=== PATIENT | female | born 1980 | race Caucasian/White ===

== ENCOUNTER 2020-12-29 14:10 | Outpatient (CLI) | payer BC, SELFPAY ==
--- NOTE | 2020-12-29 14:17 | MM_ITS ---
WS: [id number] BILATERAL SCREENING MAMMOGRAM WITH VANNESA DISPLACEMENT VIEWS. CAD PERFORMED. HISTORY: SCREENING COMPARISON: None available. Bilateral craniocaudal and mediolateral like views are performed. Vannesa displacement views in CC and MLO projection also performed. Breasts composition: The breasts are heterogeneously dense, which may obscure small masses. No suspi cious masses or calcifications or distortion. Retropectoral implants are intact. MM/[id number] IMPRESSION: BI-RADS: 2-Benign FOLLOW-UP: 1 Year Follow-up
== END 2020-12-29 14:11 | disposition home or self-care (01) ==
LOC: RADSHAW 14:14
PROVIDERS: PCP Family Medicine; Visit Provider Family Medicine
DX: Z12.31 Encounter for screening mammogram for malignant neoplasm of breast (principal)
CPT/HCPCS: 77067

== ENCOUNTER 2022-01-23 11:28 | Outpatient (CLI) | payer BC, SELFPAY ==
--- NOTE | 2022-01-23 11:34 | MM_ITS ---
WS: [id number] BILATERAL SCREENING DIGITAL BREAST MAMMOGRAPHY WITH VANNESA DISPLACEMENT VIEWS. CAD PERFORMED. HISTORY: SCREENING COMPARISON: 12/29/2020 Bilateral craniocaudal and mediolateral oblique views are performed with tomosynthesis and SM. Vannesa displacement views in CC and MLO projection also performed. Breasts composition: The breasts are heterogeneously dense, which may obscure small masses. Implants are retropectoral. No mass or calcifications. No architectural distortion. MM/[place] [id number] IMPRESSION: BI-RADS: 1-Negative FOLLOW-UP: 1 Year Follow-up
== END 2022-01-23 11:29 | disposition home or self-care (01) ==
LOC: RAD 11:29
PROVIDERS: PCP Family Medicine; Visit Provider Family Medicine
DX: Z12.31 Encounter for screening mammogram for malignant neoplasm of breast (principal)
CPT/HCPCS: 77063; 77067

== ENCOUNTER 2023-03-07 15:12 | Outpatient (CLI) | payer BC, SELFPAY ==
--- NOTE | 2023-03-07 15:17 | MM_ITS ---
WS: [id number] BILATERAL 3D TOMOSYNTHESIS DIGITAL SCREENING MAMMOGRAPHY WITH CAD CLINICAL INFORMATION: SCREENING HISTORY: Screening mammogram. No current complaints. COMPARISON: 2021 TECHNIQUE: Bilateral CC and MLO views. FINDINGS: Bilateral retropectoral breast implants appear intact Scattered fibroglandular densities bilaterally. No suspicious focal mass, asymmetry, calcifications, or architectural distortion. No evidence of malignancy. IMPRESSION: MM/[place] [id number] BI-RADS: 2-Benign FOLLOW UP: 1 Year Follow-up Recommend return to annual screening mammography.
== END 2023-03-07 15:13 | disposition home or self-care (01) ==
PROVIDERS: PCP Family Medicine; Visit Provider Family Medicine
DX: Z12.31 Encounter for screening mammogram for malignant neoplasm of breast (principal)
CPT/HCPCS: 77063; 77067

== ENCOUNTER 2024-03-10 12:49 | Outpatient (CLI) | payer BC, SELFPAY ==
--- NOTE | 2024-03-10 13:01 | MM_ITS ---
WS: [id number] BILATERAL 3D TOMOSYNTHESIS DIGITAL SCREENING MAMMOGRAPHY WITH CAD CLINICAL INFORMATION: SCREENING HISTORY: Screening mammogram. No current complaints. COMPARISON: 2021 TECHNIQUE: Bilateral CC and MLO views. FINDINGS: Bilateral retropectoral breast implants appear intact. The breasts are composed of heterogeneous fibroglandular density tissue, which can limit the detectio n of small underlying mass lesions. No suspicious mass, asymmetry, calcifications, or architectural d istortion. No evidence of malignancy. MM/[place] [id number] IMPRESSION: BI-RADS: 2-Benign FOLLOW UP: 1 Year Follow-up Recommend return to annual screening mammography.
== END 2024-03-10 12:50 | disposition home or self-care (01) ==
LOC: RAD 12:51
PROVIDERS: PCP Family Medicine; Visit Provider Family Medicine
DX: Z12.31 Encounter for screening mammogram for malignant neoplasm of breast (principal); R92.333 Mammographic heterogeneous density, bilateral breasts
CPT/HCPCS: 77063; 77067

== ENCOUNTER 2025-03-11 07:55 | Outpatient (CLI) | payer BC, SELFPAY ==
--- NOTE | 2025-03-11 08:01 | MM_ITS ---
WS: [id number] BILATERAL SCREENING DIGITAL BREAST MAMMOGRAPHY WITH VANNESA DISPLACEMENT VIEWS. CAD PERFORMED. HISTORY: SCREENING COMPARISON: 03/10/2024, 03/07/2023 Bilateral craniocaudal and mediolateral oblique views are performed with tomosynthesis and SM. Vannesa displacement views in CC and MLO projection also performed. Breasts composition: The breasts are heterogeneously dense, which may obscure small masses. Implants are intact. No suspicious masses or calcifications. No distortion. MM/MM scr tomosynthesis [id number] IMPRESSION: BI-RADS: 2 - Benign FOLLOW-UP: 1 Year Follow-up
== END 2025-03-11 07:56 | disposition home or self-care (01) ==
LOC: RAD 07:56
PROVIDERS: PCP Nurse Practitioner Family; Visit Provider Nurse Practitioner Family
DX: Z12.31 Encounter for screening mammogram for malignant neoplasm of breast (principal); R92.333 Mammographic heterogeneous density, bilateral breasts
CPT/HCPCS: 77063; 77067